=== PATIENT | male | born 1960 | race Caucasian/White ===

== ENCOUNTER 2025-04-14 03:41 | Emergency (ER) | payer BC, SELFPAY ==
[2025-04-14] VITALS (7 sets, daily range): BP systolic 159–187; BP diastolic 83–103; BMI 26.0
[2025-04-14 05:24] LABS: Hematocrit 43.9 % (39.0-52.0); Hemoglobin 14.2 g/dL (13.0-18.0); Mean Corp Hgb Conc. 32.3 g/dL (33.0-37.0); Mean Corpuscular Volume 88.2 fL (80.0-94.0); Nucleated Red Blood Cells % 0 % (-); Platelet Count 146 10^3/uL (130-400); Red Cell Dist. Width 13.2 % (11.5-14.5)
[2025-04-14 05:29] LABS: Urine Character Clear (Clear)
[2025-04-14 05:43] LABS: ALT (SGPT) 29 U/L (0-50); AST (SGOT) 28 U/L (17-59); Albumin 4.0 g/dl (3.5-5.0); Alkaline Phosphatase 50 U/L (38-126); Blood Urea Nitrogen 20 mg/dl (9-20); Calcium 9.6 mg/dl (8.4-10.2); Carbon Dioxide 27 mmol/L (22-30); Chloride 105 mmol/L (98-107); Glucose 127 mg/dl (70-99); Lipase 78 U/L (23-300); Potassium 4.2 mmol/L (3.5-5.1); Sodium 137 mmol/L (135-145); Total Protein 7.0 g/dl (6.3-8.2); eGFR > 60.00
[2025-04-14] MEDS: DILAUDID 1 MG IV (05:45)
[2025-04-14] MEDS: ZOFRAN 4 MG IV (05:45)
[2025-04-14] MEDS: NSS 1000 IV (05:45)
--- NOTE | 2025-04-14 06:04 | ED.GENMED ---
History of Present Illness
<TORIBIO Olivera Last Filed: 04/15/25 08:37>
General
Chief Complaint: Flank Pain
Source: patient
Exam Limitations: none
Time Seen by Provider: 04/14/25 05:56
Nursing documentation reviewed up to this point in time: agreed with
History of Present Illness
History of Present Illness:
65 y/o M with h/oCAD, HTN, kidney stones
here with R back pain that woke him up from sleep 1.5 hours ago 9 pain
doesn't really radiate
no pain down legs, numbness/tingling/weakness
no dysuria or hematuria
no chills/fever
feels like kidney stone
Past History
<TORIBIO Olivera Filed: 04/15/25 08:37>
Past History
ED Past Medical History: CAD, HTN, Hypercholesterolemia, NIDDM and Other (kidney stnoes)
ED Past Surgical History: Cardiac (bypass) and Orthopedic
Social History
Tobacco: Non-smoker
Review of Systems
<TORIBIO Olivera Last Filed: 04/15/25 08:37>
Review of Systems
Allergies reviewed?: Yes
All Other Systems: Not applicable
Phy Exam
<TORIBIO Olivera Last Filed: 04/15/25 08:37>
Physical Exam
Physical Exam:
GENERAL: Alert, uncomfortable, moaning, moving about in the stretcher
Neck: supple
CARDIAC: Regular rate and rhythm .
LUNGS: Clear breath sounds bilaterally, no acute respiratory distress, no wheezes/rales/rhonchi
ABDOMEN: Soft, normal bowel sounds, nondistended, no abdominal tenderness, no guarding, no rebound, neg donovan's
Back: No tenderness, full range of motion of his leg
NEUROLOGICAL: Alert and oriented, no focal neuro deficits
SKIN: Warm and dry, skin intact.
PSYCH: Normal and appropriate interaction.
Course
<Nisa Pederson PA-C - Last Filed: 04/15/25 08:37>
Orders/Labs/Results
Orders:
Orders
04/14/25 04:40
Complete Blood Count/With Diff Urgent
Comprehensive Metabolic Panel Urgent
Lipase Urgent
04/14/25 04:56
Urinalysis Reflex To Culture Urgent
Date Specimen was Collected: 04/14/25
Time Specimen was Collected: 04:37
Urine Microscopic Reflex Cult Urgent
Urine Culture Urgent
ESDRAS Source: U
Specimen Description:
Date Specimen was Collected: 04/14/25
Time Specimen was Collected: 04:37
04/14/25 05:35
0.9% Sodium Chloride 1000 ml [Nss] 1,000 ml IV BOLUS
HYDROmorphone [Dilaudid] 1 mg IV NOW STA
Ondansetron Injectable [Zofran] 4 mg IV NOW STA
04/14/25 05:36
CT Abd/pel Without Iv Or Oral Urgent
Comment:
Reason For Exam: R flank pain, h/o kidney stones
04/14/25 07:06
Ketorolac [Toradol] 15 mg IV NOW STA
Abnormal Lab Results
04/14/25 04/14/25
04:40 04:56
MCHC 32.3 L g/dL
(33.0-37.0)
MPV 11.1 H fL
(7.4-10.4)
Glucose 127 H mg/dl
(70-99)
Ur Occult Blood Reflex 2+ A
(Negative)
Leukocyte Esterase Rfl 1+ A
(Negative)
Urine RBC 3-6 A /HPF
(0-2)
Urine Bacteria (Reflex) Few A
(Negative)
Urine Albumin (Reflex) 2+ A
(Neg - Trace)
04/14/25 04:40
04/14/25 04:40
Vital Signs
Initial and Last Documented VS:
Initial Vital Signs
Temp Pulse Resp BP Pulse Ox
36.3 C 61 24 187/103 99
04/14/25 04:05 04/14/25 04:05 04/14/25 04:05 04/14/25 04:05 04/14/25 04:05
Last Documented Vital Signs
Temp Pulse Resp BP Pulse Ox
36.4 C 82 20 159/83 99
04/14/25 07:22 04/14/25 07:22 04/14/25 07:22 04/14/25 07:22 04/14/25 07:22
<GABRIELLE Manuel - Last Filed: 04/14/25 08:57>
Orders/Labs/Results
Orders:
Orders
04/14/25 04:40
Complete Blood Count/With Diff Urgent
Comprehensive Metabolic Panel Urgent
Lipase Urgent
04/14/25 04:56
Urinalysis Reflex To Culture Urgent
Date Specimen was Collected: 04/14/25
Time Specimen was Collected: 04:37
Urine Microscopic Reflex Cult Urgent
Urine Culture Urgent
ESDRAS Source: U
Specimen Description:
Date Specimen was Collected: 04/14/25
Time Specimen was Collected: 04:37
04/14/25 05:35
0.9% Sodium Chloride 1000 ml [Nss] 1,000 ml IV BOLUS
HYDROmorphone [Dilaudid] 1 mg IV NOW STA
Ondansetron Injectable [Zofran] 4 mg IV NOW STA
04/14/25 05:36
CT Abd/pel Without Iv Or Oral Urgent
Comment:
Reason For Exam: R flank pain, h/o kidney stones
04/14/25 07:06
Ketorolac [Toradol] 15 mg IV NOW STA
Abnormal Lab Results
04/14/25 04/14/25
04:40 04:56
MCHC 32.3 L g/dL
(33.0-37.0)
MPV 11.1 H fL
(7.4-10.4)
Glucose 127 H mg/dl
(70-99)
Ur Occult Blood Reflex 2+ A
(Negative)
Leukocyte Esterase Rfl 1+ A
(Negative)
Urine RBC 3-6 A /HPF
(0-2)
Urine Bacteria (Reflex) Few A
(Negative)
Urine Albumin (Reflex) 2+ A
(Neg - Trace)
04/14/25 04:40
04/14/25 04:40
Vital Signs
Initial and Last Documented VS:
Initial Vital Signs
Temp Pulse Resp BP Pulse Ox
36.3 C 61 24 187/103 99
04/14/25 04:05 04/14/25 04:05 04/14/25 04:05 04/14/25 04:05 04/14/25 04:05
Last Documented Vital Signs
Temp Pulse Resp BP Pulse Ox
36.4 C 82 20 159/83 99
04/14/25 07:22 04/14/25 07:22 04/14/25 07:22 04/14/25 07:22 04/14/25 07:22
<Nisa Pederson PA-C - Last Filed: 04/15/25 08:37>
MDM/Problems Addressed
Differential Diagnosis Includes:
Kidney stone, dissection
MDM/Problems Addressed:
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
vasculopath
h/o kidneys tones
woke up with severe R back pain feeling similar to kidney stone
no dysuria, fever vomiting
moaning and in a lot of pain
not positional
hyeprtensive
but suspect kidney stone
s/o pending labs, ctap
pain meds ordered
<Nsia Pederson PA-C - Last Filed: 04/15/25 08:37>
*Pulse Oximetry
SaO2: 95
Oxygen Mode of Delivery: Room air
<GABRIELLE Manuel - Last Filed: 04/14/25 08:57>
*Pulse Oximetry
Patient hypoxic: no
*Critical Care Note
Total Time (30-74mins, 75-104mins- exclusive of procedures): Not Applicable
<GABRIELLE Manuel - Last Filed: 04/14/25 08:57>
Update Note
Update Note:
Received case in signout. CAT scan now resulted does show moderate acute right hydroureteronephrosis secondary to a 5 mm obstructing calculus in the right mid ureter. On reexam patient reports though pain has improved he still in a moderate degree
of pain. Will try dose of IV Toradol normal renal function.
0853: Patient feeling much better after Toradol feels well enough to go home. Will DC with Flomax, pain medicine with instructions to increase fluids and strain urine with outpatient urology follow-up
ED Attending Note
<Nisa Pederson PA-C - Last Filed: 04/15/25 08:37>
-
Portions of this chart may have been created with voice recognition software.� Occasional wrong word or��sound alike� substitutions may have occurred due to the inherent limitations of voice recognition software.
Discharge Plan
Departure
Patient Disposition: Home (Routine Discharge)
Date of Disposition: 04/14/25
Time of Disposition: 08:53
Patient with high blood pressure during this ER visit?: Yes
Condition: Fair
Covid-19: Not Applicable
Discharge Problem:
Renal colic
Instructions: Kidney Stones (DC), How to Strain Your Urine, BLOOD PRESSURE, Narcotic Pain Medication
Prescriptions:
New
tamsulosin 0.4 mg capsule
0.4 mg PO ONCE Qty: 7 0RF
oxycodone 5 mg tablet
5 mg PO Q6H PRN (Reason: Pain) Qty: 10 0RF
No Action
nebivolol [Bystolic] 10 mg Tablet
10 mg PO DAILY
Referrals:
YANELIS PUGH [Other]
Dain Dan MD [Active, Urology]
Activity Restrictions/Additional Instructions:
As discussed stay well-hydrated. You may take ibuprofen every 8 hours as needed for discomfort however a prescription for narcotic pain medicine was sent to pharmacy take as directed if needed. This is a narcotic and will cause drowsiness. No
driving or drinking alcohol taking this medication. In addition it will cause constipation it is recommended that you start a laxative while taking this medication. In addition please take Flomax as directed daily for the next week. Call urology
today for an appointment in the next several days for reevaluation. Return if any worsening of symptoms.
Interventions
Interventions:
*Risk Screen - Suicide Last Done: 04/14/25 04:13
*General Assessment Last Done: 04/14/25 04:13
*Neglect/Abuse Screening Last Done: 04/14/25 04:13
*ED- Fall Risk Assessment Last Done: 04/14/25 04:13
*ED COVID-19 Vaccine History Last Done: 04/14/25 04:13
*ED Influenza Vaccine History Last Done: 04/14/25 04:13
*Nursing Disposition Last Done: 04/14/25 09:29
WD-Wuecyg-Facexhfytl Assessment Last Done: 04/14/25 04:48
ED-Male Genitourinary Assessment Last Done: 04/14/25 04:48
Discharge Date and Time
Discharge Date/Time: 04/14/25 09:30
Print Language: MACEDONIAN
[2025-04-14 07:10] LABS: Urine Squamous Cell 0-2 /LPF (Few)
[2025-04-14] MEDS: TORADOL 15 MG IV (07:17)
== END 2025-04-14 09:30 | disposition home or self-care (01) ==
LOC: EMR 03:41
PROVIDERS: EMERGENCY PHYSICIAN Emergency Medicine
DX: N13.2 Hydronephrosis with renal and ureteral calculous obstruction (principal); E11.9 Type 2 diabetes mellitus without complications; E78.00 Pure hypercholesterolemia, unspecified; I10 Essential (primary) hypertension; I25.10 Atherosclerotic heart disease of native coronary artery without angina pectoris; Z95.1 Presence of aortocoronary bypass graft
CPT/HCPCS: 96374; 96375; 96361; 99284; 74176; 80053; 81003; 81015; 83690; 85025; 87086